=== PATIENT | male | born 1950 | race Caucasian/White ===

== ENCOUNTER 2016-06-16 09:34 | Emergency (ER) | payer MEDICARE, OTHER ==
[2016-06-16 10:14] LABS: HEMATOCRIT 39.1 % (42.0-52.0); HEMOGLOBIN 13.2 gm/dl (14.0-18.0); MEAN CELL VOLUME 97.8 fl (81-97); MEAN CORPUSCULAR HGB CONC 33.8 g/dl (32-36); MEAN PLATELET VOLUME 9.1 fl (7.4-10.4); PLATELET COUNT 243 K/uL (130-400); RED CELL DISTRIBUTION WIDTH 13.2 % (11.5-14.5); WHITE BLOOD COUNT W/O DIFF 12.6 K/uL (4.2-12.2)
[2016-06-16] MEDS: PROMETHAZINE HCL 25 MG/ML VIAL IVP ONE (10:19)
[2016-06-16] MEDS: HYDROMORPHONE HCL 1 MG/ML CPJ IVP ONE ×2 (10:20→13:59)
[2016-06-16] MEDS: 0.9 % SODIUM CHLORIDE 1,000 ML BAG IV ONE (10:21)
[2016-06-16 10:29] LABS: ANION GAP 10.9 (7-16); CARBON DIOXIDE 15.1 mmol/L (22-30); CREATININE 5.3 mg/dL (0.66-1.25)
--- NOTE | 2016-06-16 11:10 | Emergency Department Record ---
History of Present Illness - General Chief complaint: Flank Pain Stated complaint: THINK I HAVE A KIDNEY STONE Time Seen by Provider: 06/16/16 09:39 Source: Patient Mode of Arrival: Ambulatory Limitations: No limitations - History of Present Illness Initial comments: pt has a hx of r nephrectomy due to cancer and hx of kidney stones. pt has had l flank pain since yesterday and has been unable to urinate since yesterday at 3pm. pain was severe during night Onset/Timin -: Days(s) Location: Left flank Radiation: L flank Severity: Moderate Severity scale (1-10): 6 Quality: Aching Consistency: Constant Improves with: None Reports: Nausea/vomiting, Urinary retention - Related Data Home Medications Medication Instructions Recorded Confirmed Last Taken Albuterol Sulfate [Proair Hfa] 1 - 2 puff IH .EVERY 4-6 HOURS PRN 10/23/1406/16 1 Day Ago Fluticasone/Salmeterol [Advair 1 puff IH DAILY 10/23/14 06/16/16 1 Day Ago 250-50 Diskus] Hydrocodone/Acetaminophen [Darling 1 tab PO Q6H PRN 10/23/14 06/16/16 1 Day Ago 10-325 Tablet] Allergies Allergy/AdvReac Type Severity Reaction Status Date / Time No Known Drug Allergies Allergy Verified 06/16/16 09:47 Travel Screening - Travel/Exposure Within Last 30 Days Have you traveled within the last 30 days?: No - Travel/Exposure Within Last Year Have you traveled outside the [place] in the last year?: No - Additonal Travel Details Have you been exposed to anyone with a communicable illness?: No - Travel Symptoms Symptom Screening: None Review of Systems Reviewed: No additional complaints except as noted below Constitutional: Reports: As per HPI. Denies: Chills, Fever, Malaise, Night sweats, Weakness, Weight change Eyes: Reports: As per HPI. Denies: Eye discharge, Eye pain, Photophobia, Vision change ENT: Reports: As per HPI. Denies: Congestion, Dental pain, Ear pain, Epistaxis , Hearing loss, Throat pain Respiratory: Reports: As per HPI. Denies: Cough, Dyspnea, Hemoptysis, Stridor, Wheezes Cardiovascular: Reports: As per HPI. Denies: Arrhythmia, Chest pain, Dyspnea on exertion, Edema, Murmurs, Orthopnea, Palpitations, Paroxysmal nocturnal dyspnea, Rheumatic Fever, Syncope Endocrine: Reports: As per HPI. Denies: Fatigue, Heat or cold intolerance, Polydipsia, Polyuria Gastrointestinal: Reports: As per HPI. Denies: Abdominal pain, Constipation, Diarrhea, Hematemesis, Hematochezia, Melena, Nausea, Vomiting Genitourinary: Reports: As per HPI. Denies: Dysuria, Frequency, Hematuria, Incontinence, Retention, Testicular pain, Testicular mass, Urgency Musculoskeletal: Reports: As per HPI. Denies: Arthralgia, Back pain, Gout, Joint swelling, Myalgia, Neck pain Skin: Reports: As per HPI. Denies: Bruising, Change in color, Change in hair/ nails, Lesions, Pruritus, Rash Neurological: Reports: As per HPI. Denies: Abnormal gait, Confusion, Headache, Numbness, Paresthesias, Seizure, Tingling, Tremors, Vertigo, Weakness Psychiatric: Reports: As per HPI. Denies: Anxiety, Auditory hallucinations, Depression, Homicidal thoughts, Suicidal thoughts, Visual hallucinations Hematological/Lymphatic: Reports: As per HPI. Denies: Anemia, Blood Clots, Easy bleeding, Easy bruising, Swollen glands Past Medical History - SOCIAL HISTORY Smoking Status: Current every day smoker Alcohol Use: Rare Drug Use: None - RESPIRATORY Hx Respiratory Disorders: Yes Hx Sleep Apnea: Yes - CARDIOVASCULAR Hx Cardio Disorders: Yes Comment:: extra ventricular heart activity - NEURO Hx Neuro Disorders: Yes Hx Headaches: Yes - GI Hx GI Disorders: Yes Hx Reflux: Yes - Hx Genitourinary Disorders: Yes Hx Kidney Stones: Yes - ENDOCRINE Hx Endocrine Disorders: Yes Hx Thyroid Disease: Yes - MUSCULOSKELETAL Hx Musculoskeletal Disorders: Yes Hx Back Injury: Yes - PSYCH Hx Psych Problems: Yes Hx Anxiety: Yes Hx Depression: Yes - HEMATOLOGY/ONCOLOGY Hx Hematology/Oncology Disorders: Yes 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 negative: External canal tenderness Nasal Exam: Normal inspection. negative: Discharge, Sinus tenderness Mouth exam: Normal external inspection, Tongue normal Teeth exam: Normal inspection. negative: Dental caries Throat exam: Normal inspection. negative: Tonsillar erythema, Tonsillar exudate - Neck Neck exam: Normal inspection, Full ROM. negative: Tenderness - Respiratory Respiratory exam: Normal lung sounds bilaterally. negative: Respiratory distress - Cardiovascular Cardiovascular Exam: Regular rate, Normal rhythm, Normal heart sounds - GI/Abdominal GI/Abdominal exam: Soft, Normal bowel sounds, Tenderness (l flank) - Rectal Rectal exam: Deferred - exam: Deferred - Extremities Extremities exam: Normal inspection, Full ROM, Normal capillary refill. negative: Tenderness - Back Back exam: Reports: Normal inspection, Full ROM. Denies: Muscle spasm, Rash noted, Tenderness - Neurological Neurological exam: Alert, CN II-XII intact, Normal gait, Oriented X3 - Psychiatric Psychiatric exam: Normal affect, Normal mood - Skin Skin exam: Dry, Intact, Normal color, Warm Course Vital Signs 06/16/16 09:41 Temperature 98.7 F Pulse Rate 89 Respiratory 16 Rate Blood Pressure 127/71 Pulse Ox 99 Medical Decision Making - Management Options MDM Management: Additional Work-up Planned (e.g. ADM/Transfer/OP Study) - Data Complexity MDM Data: Labs Ordered and/or Reviewed, X-Ray Ordered and/or Reviewed - Lab Data Result diagrams: 06/16/16 10:05 06/16/16 10:05 Lab Results 06/16/16 06/16/16 Range/Units 10:05 10:05 WBC 12.6 H (4.2-12.2) K/uL RBC 4.00 L (4.40-5.70) M/uL Hgb 13.2 L (14.0-18.0) gm/dl Hct 39.1 L (42.0-52.0) % MCV 97.8 H (81-97) fl MCH 33.0 (27-33) pg MCHC 33.8 (32-36) g/dl RDW 13.2 (11.5-14.5) % Plt Count 243 (130-400) K/uL MPV 9.1 (7.4-10.4) fl Neutrophils % 71.0 (47-80) % Lymphocytes % 18.0 (16-45) % Monocytes % 11.0 H (0-9) % Eosinophils % Not Reportable Basophils % Not Reportable Sodium 134 L (136-145) mmol/L Potassium 5.0 (3.5-5.1) mmol/L Chloride 108 H (98-107) mmol/L Carbon Dioxide 15.1 L (22-30) mmol/L Anion Gap 10.9 (7-16) BUN 37 H (9-20) mg/dL Creatinine 5.3 H (0.66-1.25) mg/dL Estimated GFR 12 ml/min Random Glucose 91 (70-110) mg/dL Calcium 8.0 L (8.5-10.1) mg/dL - Radiology Data Radiology results: Report reviewed, Image reviewed Disposition Disposition: Transfer Clinical Impression: Acute renal failure (ARF) Qualifiers: Acute renal failure type: unspecified Qualified Code(s): N17.9 - Acute kidney failure, unspecified Hydronephrosis Qualifiers: Hydronephrosis type: with ureteral calculous obstruction Qualified Code(s): N13.2 - Hydronephrosis with renal and ureteral calculous obstruction Disposition: Acute Care Hospital Transfer Transfer To: [facility] Reason For Transfer: acute renal faiure with obstructing stones Accepting Physician: dr garcia Time Discussed w/Accepting Physician: 13:09 Forms: Patient Portal Access
--- NOTE | 2016-06-19 08:32 | CT SCAN REPORT ---
EXAM: CT SCAN OF THE ABDOMEN AND PELVIS WITHOUT CONTRAST HISTORY: LEFT FLANK PAIN AND SIDE PAIN. PREVIOUS RIGHT NEPHRECTOMY. TECHNIQUE: Standard CT imaging of the abdomen and pelvis was performed in the axial plane without contrast. Additional coronal and sagittal reformatted images were also performed. Comparison: 05/26/15. FINDINGS: There is mild atelectasis or scarring at the lung bases. The lung bases are otherwise clear. The liver is normal. The gallbladder is surgically absent. The biliary tree, pancreas, spleen, and adrenal glands are normal. There are multiple stones within the left proximal ureter. The largest measures 8 x 6 mm. There is moderate left hydronephrosis with associated perinephric fat stranding. Nonobstructing stones are also present within the left kidney. The largest is located at the inferior pole and measures 10 x 8 mm. The distal left ureter and urinary bladder appear normal. The right kidney is surgically absent. The aorta is normal in caliber. There is no retroperitoneal lymphadenopathy. The bowel and mesentery appear within normal limits. There are no focal inflammatory changes. There is no pneumoperitoneum or ascites. Surgical clips are present within the pericecal region. The prostate gland is nonenlarged. There are no acute osseous abnormalities. Degenerative changes are present within the spine. IMPRESSION: 1. THERE ARE MULTIPLE STONES WITHIN THE PROXIMAL LEFT URETER, THE LARGEST OF WHICH MEASURES 8 X 6 MM. THERE IS MODERATE ASSOCIATED LEFT HYDRONEPHROSIS. 2. NONOBSTRUCTING LEFT INTRARENAL CALCULI. 3. THERE ARE NO OTHER ACUTE FINDINGS. 4. POST SURGICAL CHANGES ABOVE. JOB NUMBER: [id number] [facility]
== END 2016-06-16 14:08 | disposition short-term general hospital (02) ==
LOC: ER 09:34
DX: N17.9 Acute kidney failure, unspecified (principal); N13.2 Hydronephrosis with renal and ureteral calculous obstruction; R11.2 Nausea with vomiting, unspecified; R33.9 Retention of urine, unspecified; Z87.442 Personal history of urinary calculi
CPT/HCPCS: 99285 ×2; 96376; 96374; 96375; 96361; 80048; 85027; 74176; J1170; J2550; J7030

== ENCOUNTER 2016-07-16 09:38 | Day surgery (SDC) | payer MEDICARE, OTHER ==
[2016-07-16] MEDS ORDERED: TETRACAINE HCL 0.5% 15 ML OPTH BTL OPTH ONE (13:48)
[2016-07-16] MEDS ORDERED: TETRACAINE HCL 0.5% OPTH 2ML SOLU OPTH ONE (13:48)
[2016-07-16] MEDS ORDERED: TOBRAMYCIN 0.3% OPTH DROP 5 ML BTL OPTH ONE (13:48)
[2016-07-16] MEDS ORDERED: PREDNISOLONE ACETATE 1% OPTH 10ML BOTTLE OPTH ONE (13:48)
[2016-07-16] MEDS ORDERED: DICLOFENAC SODIUM 2.5 ML DROPS OPTH ONE (13:48)
[2016-07-16] MEDS ORDERED: NEOMYCIN/POLY./DEXAM OPTH OINT OPTH ONE (13:48)
[2016-07-16] MEDS ORDERED: TROPICAMIDE 1% 15ML BTL OP ONE (13:48)
[2016-07-16] MEDS ORDERED: LIDOCAINE 1% MPF 100MG/10ML AMPULE IV ONE (13:48)
[2016-07-16] MEDS ORDERED: LIDOCAINE 2% MDV (20MG/ML) 20ML VIAL IV ONE (13:48)
[2016-07-16] MEDS ORDERED: PHENYLEPHRINE HCL 2.5% OPTH 2ML BTL OP ONE (13:48)
[2016-07-16] MEDS ORDERED: EPINEPHRINE 1 MG/ML AMPUL SQ ONE (13:48)
--- NOTE | 2016-07-16 14:47 | OP NOTE CHAMES ---
DATE OF PROCEDURE: 07/16/16 PREOPERATIVE DIAGNOSIS: Nuclear sclerotic cataract, right eye. POSTOPERATIVE DIAGNOSIS: Nuclear sclerotic cataract, right eye. OPERATION: Phacoemulsification of cataractous lens with implantation of intraocular lens. LENS IMPLANT USED: Valverde Model PCB00 + 19.5 diopters. COMPLICATIONS: None. PROCEDURE IN DETAIL: Following a retrobulbar and facial block, the patient was prepped and draped in the usual fashion for eye surgery. A lid speculum was placed in the right eye after which a 2.4 mm tunnel wound was placed at the temporal limbus and dissected into clear cornea. A paracentesis was placed at 2 oclock hours to the left and right of the initial incision and the chamber deepened with Viscoelastic. The keratome was then used to enter the anterior chamber after which the continuous circular capsulorrhexis was accomplished without difficulty using a bent needle and a Utrata forceps. Hydrodissection and hydrodelineation of the lens was performed after which the nucleus of the lens was removed using the Phaco handpiece in the [id number] technique. The residual cortical material was irrigated and aspirated from the eye after which the bag and chamber were re-examined. The bag was re-inflated with Viscoelastic and the intraocular lens injected into the capsular bag where it centered well. The Viscoelastic was then copiously irrigated and aspirated from the eye after which the temporal tunnel wound and paracentesis were hydrated and the wounds were examined. They were noted to be watertight. The lid speculum was removed from the eye and the eye patched and shielded. The patient was transferred to the recovery room in satisfactory condition and given an appointment to be reexamined in the clinic later today or as directed by Dr. Zelaya. Carlos Zelaya M.D. Date & Time JOB NUMBER: [id number] MTDD
== END 2016-07-16 12:40 | disposition home or self-care (01) ==
LOC: SUR 09:38
PROVIDERS: ATTEND Ophthalmology
DX: H25.11 Age-related nuclear cataract, right eye (principal); J45.909 Unspecified asthma, uncomplicated
CPT/HCPCS: J0171; J3490

== ENCOUNTER 2016-07-18 09:22 | Emergency (ER) | payer MEDICARE, OTHER ==
--- NOTE | 2016-07-18 09:37 | Emergency Department Record ---
History of Present Illness - General Chief complaint: Rectal bleeding Stated complaint: RECTAL BLEEDING Time Seen by Provider: 07/18/16 09:36 Source: Patient Mode of Arrival: Wheelchair Limitations: No limitations - History of Present Illness Initial comments: The patient is here due to a 3 day hx of dark stools. He was having some epigastric AP but no vomiting. The stools are dark black and brown which have not been normal for him. Now he is weak and dizzy with standing. The patient only has one kidney and a month ago did have ureter stones on the L with renal failure. On that visit to the ER he was transferred to [facility] and had a ureter stent placed. He denies any new pain medicines. MD complaint: Melena Onset/Timin -: Days(s) Radiation: None Consistency: Intermittent Improves with: None Worsens with: None Context: History of GI bleed Associated Symptoms: Abdominal pain, Diarrhea, Weakness Treatments Prior to Arrival: None - Related Data Home Medications Medication Instructions Recorded Confirmed Last Taken Albuterol Sulfate [Proair Hfa] 1 - 2 puff IH .EVERY 4-6 HOURS PRN 10/23/1407/18 1 Day Ago Fluticasone/Salmeterol [Advair 1 puff IH DAILY 10/23/14 07/18/16 1 Day Ago 250-50 Diskus] Hydrocodone/Acetaminophen [Natchez 1 tab PO Q6H PRN 10/23/14 07/18/16 1 Day Ago 10-325 Tablet] Allergies Allergy/AdvReac Type Severity Reaction Status Date / Time No Known Drug Allergies Allergy Verified 07/18/16 09:33 Travel Screening - Travel/Exposure Within Last 30 Days Have you traveled within the last 30 days?: No Review of Systems Constitutional: Reports: Malaise. Denies: Chills, Fever Eyes: Denies: Eye discharge ENT: Denies: Congestion Respiratory: Denies: Cough Cardiovascular: Denies: Arrhythmia, Chest pain Endocrine: Reports: Fatigue Gastrointestinal: Reports: Melena. Denies: Diarrhea Genitourinary: Denies: Dysuria, Frequency Musculoskeletal: Denies: Back pain Skin: Denies: Bruising Past Medical History - SOCIAL HISTORY Smoking Status: Current every day smoker Alcohol Use: None Drug Use: None - RESPIRATORY Hx Respiratory Disorders: Yes Hx Asthma: Yes Hx Sleep Apnea: Yes - CARDIOVASCULAR Hx Cardio Disorders: Yes Hx Irregular Heartbeat: Yes (extra beat) Hx Palpitations: Yes Comment:: extra ventricular heart activity - NEURO Hx Neuro Disorders: Yes Hx Headaches: Yes - GI Hx GI Disorders: Yes Hx Nausea/Vomiting: Yes (nausea from kidney stones) - Hx Genitourinary Disorders: Yes Hx Kidney Stones: Yes Hx Renal Disease: Yes (right kidney removed d/t cancer) - ENDOCRINE Hx Endocrine Disorders: Yes Hx Thyroid Disease: Yes - MUSCULOSKELETAL Hx Musculoskeletal Disorders: Yes Hx Back Injury: Yes - PSYCH Hx Psych Problems: Yes Hx Anxiety: Yes Hx Depression: Yes - HEMATOLOGY/ONCOLOGY Hx Hematology/Oncology Disorders: Yes 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 negative: Tonsillar erythema, Tonsillar exudate - Neck Neck exam: Normal inspection, Full ROM. negative: Tenderness - Respiratory Respiratory exam: Normal lung sounds bilaterally. negative: Respiratory distress - Cardiovascular Cardiovascular Exam: Regular rate, Normal rhythm, Normal heart sounds - GI/Abdominal GI/Abdominal exam: Soft, Normal bowel sounds. negative: Guarding, Rigid, Tenderness - Rectal Rectal exam: Black stool, Heme (+) stool - Extremities Extremities exam: Normal inspection, Full ROM, Normal capillary refill. negative: Tenderness - Neurological Neurological exam: Alert, Oriented X3. negative: Motor sensory deficit - Skin Skin exam: Pallor Course Vital Signs 07/18/16 09:33 Temperature 97.7 F Pulse Rate [ 122 H Pulse Ox Probe] Respiratory 24 Rate Blood Pressure 85/58 [Left Arm] Pulse Ox 100 - Reevaluation(s) Reevaluation #1: The patient is feeling better at this time. His BP is now improved and the systolic is in the 90's. He denies any CP or SOB. I did discuss the need for transfer to a larger hospital with him and he would like to go to [facility]. 07/18/16 10:53 Reevaluation #2: The patient is doing very well at this time. His BP is improving and he is resting comfortably. I did discuss the case with Dr. Hernandez at [facility] and she accepts the patient to the hospital in transfer. 07/18/16 11:19 Reevaluation #3: The patient is doing very well at this time. His BP is improved at 112/70 and he is resting comfortably. We are still waiting on a bed at [facility]. 07/18/16 11:43 Reevaluation #4: The patient is doing very well at this time. His 1st unit of blood is almost in. I did discuss the IV access problem we are having with him. We were able to get 2 22 gauge IV's in him and have tried multiple times for a larger IV. Due to his dehydration we seem to be having trouble. I did discuss putting a central line in but the patient is refusing. He presently is hemodynamically stable and has had no melena for many hours so I do feel it is OK for him to refuse. 07/18/16 12:52 Medical Decision Making - Data Complexity MDM Data: Labs Ordered and/or Reviewed, EKG Ordered and/or Reviewed - Lab Data Result diagrams: 07/18/16 09:55 07/18/16 09:55 - EKG Data -: EKG Interpreted by Me EKG: No Acute Changes, Normal EKG Disposition Forms: Patient Portal Access
[2016-07-18 10:02] LABS: HEMATOCRIT 27.8 % (42.0-52.0); HEMOGLOBIN 8.8 gm/dl (14.0-18.0); MEAN CELL VOLUME 102.2 fl (81-97); MEAN CORPUSCULAR HGB CONC 31.7 g/dl (32-36); MEAN PLATELET VOLUME 10.2 fl (7.4-10.4); PLATELET COUNT 225 K/uL (130-400); RED BLOOD COUNT 2.72 M/uL (4.40-5.70); RED CELL DISTRIBUTION WIDTH 13.1 % (11.5-14.5); WHITE BLOOD COUNT W/O DIFF 11.7 K/uL (4.2-12.2)
[2016-07-18 10:04] LABS: MEAN CORPUSCULAR HEMOGLOBIN 32.3 pg (27-33)
[2016-07-18] MEDS: 0.9 % SODIUM CHLORIDE 1,000 ML BAG IV ONE ×2 (10:05)
[2016-07-18 10:12] LABS: HYPOCHROMIA 1+; PLATELET ESTIMATE NORMAL (NORMAL)
[2016-07-18 10:16] LABS: ALBUMIN 3.4 gm/dL (3.5-5.0); ANION GAP 16.3 (7-16); BILIRUBIN,TOTAL 0.19 mg/dL (0.2-1.3); CARBON DIOXIDE 12.7 mmol/L (22-30); CREATININE 2.5 mg/dL (0.66-1.25); TOTAL PROTEIN 5.9 gm/dL (6.3-8.2)
[2016-07-18 10:18] LABS: INR 0.96; PROTHROMBIN TIME (PATIENT) 10.9 SECONDS (9.5-12.1)
[2016-07-18 10:42] LABS: ABO GROUP O; ANTIBODY SCREEN NEGATIVE (NEGATIVE); RH TYPE POSITIVE
[2016-07-18 11:01] LABS: IMMED. SPIN CROSSMATCH COMPATIBLE
[2016-07-18] MEDS: HYDROMORPHONE HCL 1 MG/ML CPJ IVP ONE (11:55)
[2016-07-18] MEDS: ONDANSETRON HCL IV 4 MG/2 ML VIAL IVP ONE (11:55)
--- NOTE | 2016-07-23 07:45 | Emergency Department Record ---
History of Present Illness - General Chief complaint: Rectal bleeding Stated complaint: RECTAL BLEEDING Time Seen by Provider: 07/18/16 09:36 Source: Patient Mode of Arrival: Wheelchair Limitations: No limitations - History of Present Illness MD complaint: Melena Onset/Timin -: Days(s) Radiation: None Consistency: Intermittent Improves with: None Worsens with: None Context: History of GI bleed Associated Symptoms: Abdominal pain, Diarrhea, Weakness Treatments Prior to Arrival: None - Related Data Home Medications Medication Instructions Recorded Confirmed Last Taken Albuterol Sulfate [Proair Hfa] 1 - 2 puff IH .EVERY 4-6 HOURS PRN 10/23/1407/18 1 Day Ago Fluticasone/Salmeterol [Advair 1 puff IH DAILY 10/23/14 07/18/16 1 Day Ago 250-50 Diskus] Hydrocodone/Acetaminophen [Hines 1 tab PO Q6H PRN 10/23/14 07/18/16 1 Day Ago 10-325 Tablet] Allergies Allergy/AdvReac Type Severity Reaction Status Date / Time No Known Drug Allergies Allergy Verified 07/18/16 09:33 Travel Screening - Travel/Exposure Within Last 30 Days Have you traveled within the last 30 days?: No Review of Systems Constitutional: Reports: Malaise. Denies: Chills, Fever Eyes: Denies: Eye discharge ENT: Denies: Congestion Respiratory: Denies: Cough Cardiovascular: Denies: Arrhythmia, Chest pain Endocrine: Reports: Fatigue Gastrointestinal: Reports: Melena. Denies: Diarrhea Genitourinary: Denies: Dysuria, Frequency Musculoskeletal: Denies: Back pain Skin: Denies: Bruising Past Medical History - SOCIAL HISTORY Smoking Status: Current every day smoker Alcohol Use: None Drug Use: None - RESPIRATORY Hx Respiratory Disorders: Yes Hx Asthma: Yes Hx Sleep Apnea: Yes - CARDIOVASCULAR Hx Cardio Disorders: Yes Hx Irregular Heartbeat: Yes (extra beat) Hx Palpitations: Yes Comment:: extra ventricular heart activity - NEURO Hx Neuro Disorders: Yes Hx Headaches: Yes - GI Hx GI Disorders: Yes Hx Nausea/Vomiting: Yes (nausea from kidney stones) - Hx Genitourinary Disorders: Yes Hx Kidney Stones: Yes Hx Renal Disease: Yes (right kidney removed d/t cancer) - ENDOCRINE Hx Endocrine Disorders: Yes Hx Thyroid Disease: Yes - MUSCULOSKELETAL Hx Musculoskeletal Disorders: Yes Hx Back Injury: Yes - PSYCH Hx Psych Problems: Yes Hx Anxiety: Yes Hx Depression: Yes - HEMATOLOGY/ONCOLOGY Hx Hematology/Oncology Disorders: Yes 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) Family Medical History Any Significant Family History?: Yes Hx Cancer: Grandparents Hx Heart Disease: Mother Hx Stroke: Mother Physical Exam - General Limitations: No limitations Course Vital Signs 07/18/16 07/18/16 07/18/16 09:33 10:03 10:41 Temperature 97.7 F Pulse Rate [ 122 H 97 H 80 Pulse Ox Probe] Respiratory 24 24 22 Rate Blood Pressure 85/58 82/52 91/55 [Left Arm] Pulse Ox 100 99 100 07/18/16 13:21 Temperature 98.4 F Pulse Rate [ 93 H Pulse Ox Probe] Respiratory 14 Rate Blood Pressure [Left Arm] Pulse Ox 99 Medical Decision Making - Lab Data Result diagrams: 07/18/16 09:55 07/18/16 09:55 Lab Results 07/18/16 07/18/16 07/18/16 Range/Units 09:55 09:55 09:56 WBC 11.7 (4.2-12.2) K/uL RBC 2.72 L (4.40-5.70) M/uL Hgb 8.8 L (14.0-18.0) gm/dl Hct 27.8 L (42.0-52.0) % MCV 102.2 H (81-97) fl MCH 32.3 (27-33) pg MCHC 31.7 L (32-36) g/dl RDW 13.1 (11.5-14.5) % Plt Count 225 (130-400) K/uL MPV 10.2 (7.4-10.4) fl Neutrophils % 87.0 H (47-80) % Lymphocytes % 10.0 L (16-45) % Monocytes % 3.0 (0-9) % Eosinophils % Not Reportable Basophils % Not Reportable Platelet Estimate Normal (NORMAL) Hypochromasia 1+ PT (9.5-12.1) SECONDS INR PTT (24.5-39.1) SECONDS Sodium 141 (136-145) mmol/L Potassium 5.4 H (3.5-5.1) mmol/L Chloride 112 H (98-107) mmol/L Carbon Dioxide 12.7 L (22-30) mmol/L Anion Gap 16.3 H (7-16) BUN 43 H (9-20) mg/dL Creatinine 2.5 H (0.66-1.25) mg/dL Estimated GFR 28 ml/min Random Glucose 131 H (70-110) mg/dL Calcium 8.4 L (8.5-10.1) mg/dL Total Bilirubin 0.19 L (0.2-1.3) mg/dL Direct Bilirubin 0.0 (0-0.3) mg/dL AST 20 (17-59) U/L ALT 39 (21-72) U/L Alkaline Phosphatase 85 (38-126) U/L Total Protein 5.9 L (6.3-8.2) gm/dL Albumin 3.4 L (3.5-5.0) gm/dL Lipase 150 (23-300) U/L ABO Group O Rh Factor Positive Antibody Screen Negative (NEGATIVE) 07/18/16 Range/Units 10:08 WBC (4.2-12.2) K/uL RBC (4.40-5.70) M/uL Hgb (14.0-18.0) gm/dl Hct (42.0-52.0) % MCV (81-97) fl MCH (27-33) pg MCHC (32-36) g/dl RDW (11.5-14.5) % Plt Count (130-400) K/uL MPV (7.4-10.4) fl Neutrophils % (47-80) % Lymphocytes % (16-45) % Monocytes % (0-9) % Eosinophils % Basophils % Platelet Estimate (NORMAL) Hypochromasia PT 10.9 (9.5-12.1) SECONDS INR 0.96 PTT 18.00 L (24.5-39.1) SECONDS Sodium (136-145) mmol/L Potassium (3.5-5.1) mmol/L Chloride (98-107) mmol/L Carbon Dioxide (22-30) mmol/L Anion Gap (7-16) BUN (9-20) mg/dL Creatinine (0.66-1.25) mg/dL Estimated GFR ml/min Random Glucose (70-110) mg/dL Calcium (8.5-10.1) mg/dL Total Bilirubin (0.2-1.3) mg/dL Direct Bilirubin (0-0.3) mg/dL AST (17-59) U/L ALT (21-72) U/L Alkaline Phosphatase (38-126) U/L Total Protein (6.3-8.2) gm/dL Albumin (3.5-5.0) gm/dL Lipase (23-300) U/L ABO Group Rh Factor Antibody Screen (NEGATIVE) Disposition Disposition: Transfer Clinical Impression: GI bleed Qualifiers: GI bleed type/associated pathology: melena Qualified Code(s): K92.1 - Melena Disposition: Acute Care Hospital Transfer Transfer To: [facility] Reason For Transfer: GI Bleed Accepting Physician: Mary Time Discussed w/Accepting Physician: 07:44 Condition: (2) Stable Forms: Patient Portal Access Time of Disposition: 07:44
== END 2016-07-18 13:59 | disposition short-term general hospital (02) ==
LOC: ER 09:22
DX: K92.1 Melena (principal); R10.13 Epigastric pain; E86.0 Dehydration; R06.02 Shortness of breath; R53.1 Weakness; N19 Unspecified kidney failure; Z85.528 Personal history of other malignant neoplasm of kidney; R19.7 Diarrhea, unspecified; Z87.442 Personal history of urinary calculi; F17.210 Nicotine dependence, cigarettes, uncomplicated
CPT/HCPCS: 99285 ×2; 36430; 96374; 96375; 96361; 83690; 85730; 85610; 80076; 80048; 85027; 86900; 86901; 86850; 93005; 93010; P9016; J2405; J1170; J7030

== ENCOUNTER 2017-01-14 09:32 | Day surgery (SDC) | payer MEDICARE, OTHER ==
[~2017-01-14 09:32] MED LIST: CIPROFLOXACIN HCL 0.0015 GM, PHENYLEPHRINE HCL 0.0125 GM, KETOROLAC TROMETHAMINE 0.0006... MC ONE
[2017-01-14] MEDS ORDERED: FENTANYL PF 100MCG/2ML VIAL IV ONE (14:40)
[2017-01-14] MEDS ORDERED: LIDOCAINE 2% MDV (20MG/ML) 20ML VIAL IV ONE ×2 (14:40→14:56)
[2017-01-14] MEDS ORDERED: MEPERIDINE 50 MG/1 ML VIAL IVP ONE (14:40)
[2017-01-14] MEDS ORDERED: PROPOFOL 10 MG/ML VIAL IV ONE (14:40)
[2017-01-14] MEDS ORDERED: TETRACAINE HCL 0.5% 15 ML OPTH BTL OPTH ONE (14:56)
[2017-01-14] MEDS ORDERED: LIDOCAINE 1% MPF 100MG/10ML STERILE-PAK AMPULE IV ONE (14:56)
[2017-01-14] MEDS ORDERED: NEOMYCIN/POLY./DEXAM OPTH OINT OPTH ONE (14:56)
[2017-01-14] MEDS ORDERED: EPINEPHRINE 1 MG/ML AMPUL SQ ONE (14:56)
[2017-01-14] MEDS ORDERED: TETRACAINE HCL 0.5% OPTH 2ML SOLU OPTH ONE (14:56)
--- NOTE | 2017-01-16 01:12 | Operative Note ---
DATE OF PROCEDURE: 01/14/17. PREOPERATIVE DIAGNOSIS: Nuclear sclerotic and cortical cataract, left eye. POSTOPERATIVE DIAGNOSIS: Nuclear sclerotic and cortical cataract, left eye. OPERATION: Phacoemulsification of cataractous lens with implantation of intraocular lens. LENS IMPLANT USED: Valverde Model PCB00 + 22.0 diopters. COMPLICATIONS: None. PROCEDURE IN DETAIL: Following a retrobulbar and facial block, the patient was prepped and draped in the usual fashion for eye surgery. A lid speculum was placed in the left eye after which a 2.4 mm tunnel wound was placed at the temporal limbus and dissected into clear cornea. A paracentesis was placed at 2 o'clock hours to the left and right of the initial incision and the chamber deepened with Viscoelastic. The keratome was then used to enter the anterior chamber after which the continuous circular capsulorrhexis was accomplished without difficulty using a bent needle and a Utrata forceps. Hydrodissection and hydrodelineation of the lens was performed after which the nucleus of the lens was removed using the Phaco handpiece in the [id number] technique. The residual cortical material was irrigated and aspirated from the eye after which the bag and chamber were re-examined. The bag was re-inflated with Viscoelastic and the intraocular lens injected into the capsular bag where it centered well. The Viscoelastic was then copiously irrigated and aspirated from the eye after which the temporal tunnel wound and paracentesis were hydrated and the wounds were examined. They were noted to be watertight. The lid speculum was removed from the eye and the eye patched and shielded. The patient was transferred to the recovery room in satisfactory condition and given an appointment to be reexamined in the clinic later today or as directed by Dr. Zelaya. JOB NUMBER: [id number] [facility]
== END 2017-01-14 12:35 | disposition home or self-care (01) ==
LOC: SUR 09:32
PROVIDERS: ATTEND Ophthalmology
DX: H25.12 Age-related nuclear cataract, left eye (principal); H25.012 Cortical age-related cataract, left eye; F17.210 Nicotine dependence, cigarettes, uncomplicated
CPT/HCPCS: 66984; 00142; J3010; J0171; J3490

== ENCOUNTER 2017-07-26 12:19 | Emergency (ER) | payer MEDICARE, OTHER ==
[2017-07-26] MEDS ORDERED: ONDANSETRON HCL IV 4 MG/2 ML VIAL IV ONE (12:34)
[2017-07-26] MEDS ORDERED: 0.9 % SODIUM CHLORIDE 1,000 ML BAG IV ONE (12:34)
[2017-07-26] MEDS ORDERED: MAGNESIUM HYDROXIDE/AL HYDROX 30 ML, LIDOCAINE VISC 2% 200 MG PO ONE ×2 (12:37)
--- NOTE | 2017-07-26 12:43 | Emergency Department Record ---
History of Present Illness - General Chief complaint: Flank Pain Stated complaint: LEFT FLANK PAIN Time Seen by Provider: 07/26/17 12:30 Source: Patient Mode of Arrival: Ambulatory Limitations: No limitations - History of Present Illness Initial comments: The patient is here due to L flank pain for a week off and on and also epigastric pain intermittently that radiates to her back. He denies any dysuria , hematuria, fever, chills, nausea, or vomiting. The patient states he has a hx of Kidney stones and feels he may another one. He also has a hx of PUD and has had gastric bypass surgery. There has been no dark or black stools or any CP, SOB, or sweating. The patient has had a R Nephrectomy also. MD Complaint: Other Onset/Timin -: Week(s) Location: Left flank Radiation: Back Severity: Moderate Severity scale (1-10): 7 Quality: Sharp Consistency: Constant Improves with: None Worsens with: None Reports: Denies other symptoms - Related Data Home Medications Medication Instructions Recorded Confirmed Last Taken Omeprazole 20 mg PO DAILY 07/26/17 07/26/17 Unknown Previous Rx's Medication Instructions Recorded Sucralfate [Carafate] 1 gm PO QID #28 tablet 07/26/17 Sucralfate [Carafate] 1 gm PO QID #28 tablet 07/26/17 Allergies Allergy/AdvReac Type Severity Reaction Status Date / Time No Known Drug Allergies Allergy Verified 07/26/17 12:28 Travel Screening - Travel/Exposure Within Last 30 Days Have you traveled within the last 30 days?: No Review of Systems Constitutional: Denies: Chills, Fever Eyes: Denies: Eye discharge Past Medical History - SOCIAL HISTORY Smoking Status: Current every day smoker Alcohol Use: Rare Drug Use: None - RESPIRATORY Hx Respiratory Disorders: Yes Hx Asthma: Yes Hx Sleep Apnea: Yes - CARDIOVASCULAR Hx Cardio Disorders: Yes Hx Irregular Heartbeat: Yes Hx Palpitations: Yes - NEURO Hx Neuro Disorders: Yes Hx Headaches: Yes - GI Hx GI Disorders: Yes Hx Nausea/Vomiting: Yes Comment:: ulcer - Hx Genitourinary Disorders: Yes Hx Kidney Stones: Yes Hx Renal Disease: Yes (right kidney removed d/t cancer) - ENDOCRINE Hx Endocrine Disorders: Yes Hx Thyroid Disease: Yes - MUSCULOSKELETAL Hx Musculoskeletal Disorders: Yes Hx Back Injury: Yes - PSYCH Hx Psych Problems: Yes Hx Anxiety: Yes Hx Depression: Yes - HEMATOLOGY/ONCOLOGY Hx Hematology/Oncology Disorders: Yes 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 negative: Tonsillar erythema, Tonsillar exudate - Neck Neck exam: Normal inspection, Full ROM. negative: Tenderness - Respiratory Respiratory exam: Normal lung sounds bilaterally. negative: Respiratory distress - Cardiovascular Cardiovascular Exam: Regular rate, Normal rhythm, Normal heart sounds - GI/Abdominal GI/Abdominal exam: Soft, Normal bowel sounds. negative: Tenderness - Extremities Extremities exam: Normal inspection, Full ROM, Normal capillary refill. negative: Tenderness - Neurological Neurological exam: Alert, Normal gait. negative: Abnormal gait, Motor sensory deficit Course Vital Signs 07/26/17 12:22 Temperature 98.1 F Pulse Rate 99 H Respiratory 20 Rate Blood Pressure 127/77 Pulse Ox 100 - Reevaluation(s) Reevaluation #1: On review of his old records he did have an EGD n 02/07/17 which did demonstrate 2 small duodenal ulcers and one large 3 cm duodenal ulcer but none were bleeding. 07/26/17 13:01 Reevaluation #2: The patient is doing very well at this time. He states his upper abdominal pain is much better. I did discuss the lab results and CT with the patient and the need for F/U. Due to his hx of UGI bleed I did recommend admitting the patient to the hospital for an EGD but he is refusing. He understands the risks of refusing and accepts the risks of developing a bleeding ulcer. He is to take Carafate and we will refer him to Dr. Murguia for further evaluation. 07/26/17 14:32 Medical Decision Making - Data Complexity MDM Data: Labs Ordered and/or Reviewed, X-Ray Ordered and/or Reviewed - Lab Data Result diagrams: 07/26/17 12:45 07/26/17 12:45 - Radiology Data Radiology results: Report reviewed (Head CT: 8x6 mm L kidney stone lower pole of the L kidney, nonobstruction. Possible mass L kidney. Rec: F/U.) Disposition Disposition: Discharge Clinical Impression: Abdominal pain Qualifiers: Abdominal location: epigastric Qualified Code(s): R10.13 - Epigastric pain Disposition: Home, Self-Care Condition: (2) Stable Instructions: Abdominal Pain (ED) Additional Instructions: Please take the Carafate as directed and only use Tylenol for pain. Please see Dr. Murguia in the Specialty clinic this week if possible. Also see your PCP for recheck to have the L kidney mass evaluated with MRI. Return to the ER for any worsening symptoms, pain, bleeding or dizziness. Prescriptions: Sucralfate [Carafate] 1 gm PO QID #28 tablet Sucralfate [Carafate] 1 gm PO QID #28 tablet Referrals: [facility] [Provider Group] Forms: Patient Portal Access Time of Disposition: 14:45 Quality - Quality Measures Quality Measures: N/A - Blood Pressure Screening View Details: Yes Does Patient Have Any of the Following: No Blood Pressure Classification: Normal BP Reading Systolic Measurement: 107 Diastolic Measurement: 69 Screening for High Blood Pressure: < Normal BP, F/U Not Required > [G8783]
[2017-07-26 12:57] LABS: BASO % 0.3 % (0-6); EOS % 4.2 % (0-6); GRAN % 58.3 % (47-80); HEMATOCRIT 40.9 % (42.0-52.0); HEMOGLOBIN 13.6 gm/dl (14.0-18.0); LYMPH % 25.4 % (16-45); MEAN CELL VOLUME 101.2 fl (81-97); MEAN CORPUSCULAR HGB CONC 33.3 g/dl (32-36); MEAN PLATELET VOLUME 9.5 fl (7.4-10.4); MONO % 11.8 % (0-9); PLATELET COUNT 267 K/uL (130-400); RED BLOOD COUNT 4.04 M/uL (4.40-5.70); RED CELL DISTRIBUTION WIDTH 13.6 % (11.5-14.5); WHITE BLOOD COUNT W/O DIFF 8.7 K/uL (4.2-12.2)
[2017-07-26 12:59] LABS: MEAN CORPUSCULAR HEMOGLOBIN 33.6 pg (27-33)
[2017-07-26 13:15] LABS: BLOOD UREA NITROGEN 18 mg/dL (8-23); CREATININE 2.2 mg/dL (0.7-1.2); EST GLOMERULAR FILTRATION RATE 32 mL/min; TOTAL PROTEIN 7.3 g/dL (6.6-8.7)
[2017-07-26 13:17] LABS: GLUCOSE,RANDOM 95 mg/dL (74-109)
[2017-07-26 13:20] LABS: ALBUMIN 4.3 g/dL (4.0-5.0); ALKALINE PHOSPHATASE 123 U/L (40-129); ALT/SGPT 30 U/L (<41); AST/SGOT 20 U/L (10.0-50.0); LIPASE 35 U/L (13-60)
[2017-07-26 13:22] LABS: BILIRUBIN,DIRECT < 0.2 mg/dL (0-0.3)
[2017-07-26 13:28] LABS: URINE APPEARANCE CLEAR; URINE BILIRUBIN NEGATIVE (NEGATIVE); URINE BLOOD TRACE-L (NEGATIVE); URINE COLOR YELLOW; URINE GLUCOSE (UA) NEGATIVE (NEGATIVE); URINE KETONE NEGATIVE (NEGATIVE); URINE LEUKOCYTE ESTERASE NEGATIVE (NEGATIVE); URINE NITRITE NEGATIVE (NEGATIVE); URINE UROBILINOGEN 0.2 E.U./dL (0.20 - 1.00)
[2017-07-26 13:38] LABS: URINE BACTERIA NONE SEEN; URINE EPITHELIAL CELLS NONE SEEN (FEW); URINE RBC NONE SEEN (NONE SEEN); URINE WBC NONE SEEN (0-2/hpf)
[2017-07-26] MEDS ORDERED: SUCRALFATE 1 G/10 ML UD PO ONE (13:48)
--- NOTE | 2017-07-27 08:03 | CT SCAN REPORT ---
EXAM: CT OF THE ABDOMEN AND PELVIS WITHOUT CONTRAST HISTORY: LEFT FLANK PAIN FOR ONE WEEK. GASTRIC ULCER DIAGNOSED TWO WEEKS AGO. PRIOR RIGHT NEPHRECTOMY FOR RENAL CELL CARCINOMA. TECHNIQUE: Thin collimation helical CT examination of the abdomen and pelvis was performed without oral or intravenous contrast administration. Lack of oral and IV contrast utilization limits evaluation of the bowel and solid viscera respectively. Comparison: CT of the abdomen and pelvis without contrast dated 06/16/16. FINDINGS: There is minor linear scarring versus atelectasis within the lateral lung bases. There is minor compressive atelectasis in the posteromedial right lung base secondary to vertebral body end plate spurs. No pleural or pericardial effusion. The heart is not enlarged. There is mild elevation of the right hemidiaphragm, stable. No new focal abnormality is demonstrated within the liver, spleen, pancreas, nor adrenal glands. The right kidney is surgically absent as is the gallbladder. No definite recurrent mass within the right renal fossa. The right renal fossa appears filled by unopacified bowel loops. Surgical clips are again noted near the cecal tip. The left kidney is normal in size, position and is smoothly marginated. No left hydronephrosis. There is a 7.8 x 5.8 mm nonobstructing calculus in the lower pole of the left kidney. A previously demonstrated tiny calculus in the mid left kidney is no longer identified. No obstructive uropathy. No ureteral calculus. There is a mass arising exophytically from the lower pole of the left kidney measuring 2.2 x 2.4 cm. This has a density of 25 Hounsfield units which is slightly greater than simple fluid. There is a small contour deforming hypodense mass arising from the anterior upper pole of the left kidney measuring 11 mm, not significantly changed. This does not appear significantly changed in the interval. No other renal mass is seen. There is mild atherosclerosis without aneurysmal dilatation of the abdominal aorta. No new pelvic mass nor lymphadenopathy is seen. A couple small nodular hyperdensities are noted within the right seminal vesicle, unchanged. These are nonspecific. No new gross bowel dilatation nor definite wall thickening though evaluation is limited by lack of oral contrast utilization. Wall thickening of the proximal duodenum would be difficult to exclude. No new lytic or blastic bone lesion. There are degenerative changes scattered throughout the visualized spine severe at the L4-L5 level where there is partial fusion of these vertebra. IMPRESSION: 1. STATUS POST RIGHT NEPHRECTOMY, CHOLECYSTECTOMY, AND REDEMONSTRATION OF SURGICAL CLIPS ALONG THE CECAL TIP. 2. 7.8 X 5.8 MM NONOBSTRUCTING CALCULUS IN THE LOWER POLE OF THE LEFT KIDNEY. NO OBSTRUCTIVE UROPATHY. 3. MASS ARISING EXOPHYTICALLY FROM THE LOWER POLE OF THE LEFT KIDNEY SLIGHTLY LARGER IN THE INTERVAL. THIS MEASURES 2.4 CM IN MAXIMUM DIAMETER. IT DOES NOT MEET STRICT DENSITY CRITERIA FOR A SIMPLE CYST THOUGH PROTEINACEOUS CYST WOULD BE THE MOST LIKELY ETIOLOGY. IF CLINICALLY WARRANTED THIS COULD BE FURTHER EVALUATED WITH PRE AND POST CONTRAST ADMINISTRATION CT OR MRI EXAMINATION. STABLE 11 MM HYPODENSE LESION WITHIN THE UPPER POLE OF THE LEFT KIDNEY, NONSPECIFIC, BUT LIKELY A CYST. 4. MILD WALL THICKENING OF THE PROXIMAL DUODENUM CANNOT BE EXCLUDED. JOB NUMBER: [id number] [facility]TD[facility]
== END 2017-07-26 15:30 | disposition home or self-care (01) ==
LOC: ER 12:19
DX: R10.13 Epigastric pain (principal); Z79.899 Other long term (current) drug therapy; Z51.81 Encounter for therapeutic drug level monitoring; F17.210 Nicotine dependence, cigarettes, uncomplicated; Z98.84 Bariatric surgery status; Z87.442 Personal history of urinary calculi; Z85.53 Personal history of malignant neoplasm of renal pelvis
CPT/HCPCS: 99284 ×2; 96374; 83690; 85025; 80076; 80048; 80053; 81001; 83036; 84443; 80061; 74176; J2405; J7030

== ENCOUNTER 2018-06-08 13:36 | Emergency (ER) | payer MEDICARE, OTHER ==
[2018-06-08] MEDS ORDERED: 0.9 % SODIUM CHLORIDE 1000ML 1,000 ML IV PRN (13:58)
--- NOTE | 2018-06-08 14:00 | Emergency Department Record ---
History of Present Illness - General Chief complaint: Flank Pain Stated complaint: KIDNEY STONE, FLANK PAIN Time Seen by Provider: 06/08/18 13:51 Source: Patient Mode of Arrival: Ambulatory - History of Present Illness Initial comments: patient here for kidney stone pain left side and comes and goes for one week. primary Dr. Casas, [facility] right kidney removed for cancer 30 years ago, history of kidney stones and has had lithotripsy three times 15 years ago. PMH back pain with chronic norco use 10 mg three times a day. Last back surgery 2015 Going for back electric stimulator next month. through [facility] Onset/Timin -: Days(s) Location: Left flank Severity scale (1-10): 5 Quality: Aching, Sharp Consistency: Constant, Intermittent - Related Data Previous Rx's Medication Instructions Recorded Cyclobenzaprine HCl [Flexeril] 10 mg PO TID #20 tablet 06/08/18 Allergies Allergy/AdvReac Type Severity Reaction Status Date / Time No Known Drug Allergies Allergy Verified 06/08/18 13:48 Travel Screening - Travel/Exposure Within Last 30 Days Have you traveled within the last 30 days?: No - Travel/Exposure Within Last Year Have you traveled outside the [place] in the last year?: No - Additonal Travel Details Have you been exposed to anyone with a communicable illness?: No - Travel Symptoms Symptom Screening: None Review of Systems Reviewed: No additional complaints except as noted below Constitutional: Reports: As per HPI. Denies: Chills, Fever, Malaise, Night sweats, Weakness, Weight change Eyes: Reports: As per HPI. Denies: Eye discharge, Eye pain, Photophobia, Vision change ENT: Reports: As per HPI. Denies: Congestion, Dental pain, Ear pain, Epistaxis , Hearing loss, Throat pain Respiratory: Reports: As per HPI. Denies: Cough, Dyspnea, Hemoptysis, Stridor, Wheezes Cardiovascular: Reports: As per HPI. Denies: Arrhythmia, Chest pain, Dyspnea on exertion, Edema, Murmurs, Orthopnea, Palpitations, Paroxysmal nocturnal dyspnea, Rheumatic Fever, Syncope Endocrine: Reports: As per HPI. Denies: Fatigue, Heat or cold intolerance, Polydipsia, Polyuria Gastrointestinal: Reports: As per HPI, Abdominal pain (right flank pain). Denies: Constipation, Diarrhea, Hematemesis, Hematochezia, Melena, Nausea, Vomiting Genitourinary: Reports: As per HPI. Denies: Dysuria, Frequency, Hematuria, Incontinence, Retention, Testicular pain, Testicular mass, Urgency Musculoskeletal: Reports: As per HPI. Denies: Arthralgia, Back pain, Gout, Joint swelling, Myalgia, Neck pain Skin: Reports: As per HPI. Denies: Bruising, Change in color, Change in hair/ nails, Lesions, Pruritus, Rash Neurological: Reports: As per HPI. Denies: Abnormal gait, Confusion, Headache, Numbness, Paresthesias, Seizure, Tingling, Tremors, Vertigo, Weakness Psychiatric: Reports: As per HPI. Denies: Anxiety, Auditory hallucinations, Depression, Homicidal thoughts, Suicidal thoughts, Visual hallucinations Hematological/Lymphatic: Reports: As per HPI. Denies: Anemia, Blood Clots, Easy bleeding, Easy bruising, Swollen glands Past Medical History - SOCIAL HISTORY Smoking Status: Current every day smoker Alcohol Use: Rare, Occasional Drug Use: None - RESPIRATORY Hx Respiratory Disorders: Yes Hx Asthma: Yes (uses inhaler) Hx Sleep Apnea: Yes Hx of CPAP: No - CARDIOVASCULAR Hx Cardio Disorders: Yes Hx Irregular Heartbeat: Yes Hx Palpitations: Yes - NEURO Hx Neuro Disorders: Yes Hx Headaches: Yes - GI Hx GI Disorders: Yes Hx Abdominal Pain: Yes Hx Nausea/Vomiting: Yes Hx Ulcer: Yes (in past 2017) - Hx Genitourinary Disorders: Yes Hx Kidney Stones: Yes Hx Renal Disease: Yes (right kidney removed d/t cancer) - ENDOCRINE Hx Endocrine Disorders: Yes Hx Thyroid Disease: Yes - MUSCULOSKELETAL Hx Musculoskeletal Disorders: Yes Hx Arthritis: Yes Hx Back Injury: Yes - PSYCH Hx Psych Problems: Yes Hx Anxiety: Yes Hx Depression: Yes - HEMATOLOGY/ONCOLOGY Hx Hematology/Oncology Disorders: Yes 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 negative: External canal tenderness Nasal Exam: Normal inspection. negative: Discharge, Sinus tenderness Mouth exam: Normal external inspection, Tongue normal Teeth exam: Normal inspection. negative: Dental caries Throat exam: Normal inspection. negative: Tonsillar erythema, Tonsillar exudate - Neck Neck exam: Normal inspection, Full ROM. negative: Tenderness - Respiratory Respiratory exam: Normal lung sounds bilaterally. negative: Respiratory distress - Cardiovascular Cardiovascular Exam: Regular rate, Normal rhythm, Normal heart sounds - GI/Abdominal GI/Abdominal exam: Soft, Normal bowel sounds. negative: Tenderness - Rectal Rectal exam: Deferred - exam: Deferred - Extremities Extremities exam: Normal inspection, Full ROM, Normal capillary refill. negative: Tenderness - Back Back exam: Reports: Normal inspection, Full ROM, Muscle spasm, Tenderness (left flank pain and lumbar back pain). Denies: Rash noted - Neurological Neurological exam: Alert, Normal gait, Oriented X3, Reflexes normal - Psychiatric Psychiatric exam: Normal affect, Normal mood - Skin Skin exam: Dry, Intact, Normal color, Warm Course Vital Signs 06/08/18 13:40 Temperature 98.0 F Pulse Rate 93 H Respiratory 18 Rate Blood Pressure 117/76 Pulse Ox 98 Medical Decision Making - Data Complexity MDM Data: Labs Ordered and/or Reviewed, X-Ray Ordered and/or Reviewed (non obstructing kidney stone left side and neg collitis) - Lab Data Result diagrams: 06/08/18 14:00 06/08/18 14:00 Disposition Clinical Impression: Low back pain Qualifiers: Chronicity: acute Back pain laterality: left Sciatica presence: without sciatica Qualified Code(s): M54.5 - Low back pain Lumbar strain Qualifiers: Encounter type: initial encounter Qualified Code(s): S39.012A - Strain of muscle, fascia and tendon of lower back, initial encounter Disposition: Home, Self-Care Condition: (1) Good Instructions: Low Back Strain (ED) Additional Instructions: follow up with family in 7 to 10 days Prescriptions: Cyclobenzaprine HCl [Flexeril] 10 mg PO TID #20 tablet Forms: Patient Portal Access Time of Disposition: 15:43 Quality - Quality Measures Quality Measures: N/A - Blood Pressure Screening Does Patient Have Any of the Following: No Blood Pressure Classification: Normal BP Reading Systolic Measurement: 117 Diastolic Measurement: 76 Screening for High Blood Pressure: < Normal BP, F/U Not Required > [G1139]
[2018-06-08 14:02] LABS: URINE APPEARANCE CLEAR; URINE BILIRUBIN NEGATIVE (NEGATIVE); URINE BLOOD NEGATIVE (NEGATIVE); URINE COLOR YELLOW; URINE GLUCOSE (UA) NEGATIVE (NEGATIVE); URINE KETONE NEGATIVE (NEGATIVE); URINE LEUKOCYTE ESTERASE NEGATIVE (NEGATIVE); URINE NITRITE NEGATIVE (NEGATIVE); URINE UROBILINOGEN 0.2 E.U./dL (0.20 - 1.00)
[2018-06-08 14:06] LABS: URINE EPITHELIAL CELLS 0 - 2 (FEW); URINE RBC 0 - 2 (NONE SEEN); URINE WBC 0 - 2 (0-2/hpf)
[2018-06-08 14:07] LABS: URINE BACTERIA NONE SEEN
[2018-06-08 14:09] LABS: BASO % 0.5 % (0-6); EOS % 4.2 % (0-6); HEMATOCRIT 44.7 % (42.0-52.0); HEMOGLOBIN 14.1 gm/dl (14.0-18.0); MEAN CORPUSCULAR HGB CONC 31.5 g/dl (32-36); MEAN PLATELET VOLUME 9.5 fl (7.4-10.4); MONO % 9.3 % (0-9); PLATELET COUNT 239 K/uL (130-400); RED CELL DISTRIBUTION WIDTH 14.2 % (11.5-14.5); WHITE BLOOD COUNT W/O DIFF 8.1 K/uL (4.2-12.2)
[2018-06-08 14:12] LABS: MEAN CORPUSCULAR HEMOGLOBIN 32.7 pg (27-33)
[2018-06-08 14:17] LABS: BLOOD UREA NITROGEN 18 mg/dL (8-23); CREATININE 2.6 mg/dL (0.7-1.2); EST GLOMERULAR FILTRATION RATE 26 mL/min
[2018-06-08 14:18] LABS: TOTAL PROTEIN 7.1 g/dL (6.6-8.7)
[2018-06-08 14:20] LABS: GLUCOSE,RANDOM 115 mg/dL (74-109)
[2018-06-08 14:23] LABS: ALBUMIN 4.2 g/dL (4.0-5.0); ALKALINE PHOSPHATASE 133 U/L (40-129); ALT/SGPT 31 U/L (<41); AST/SGOT 22 U/L (10.0-50.0); BILIRUBIN,DIRECT < 0.2 mg/dL (0-0.3)
--- NOTE | 2018-06-08 15:50 | CT SCAN REPORT ---
EXAM: CT SCAN ABDOMEN/PELVIS WO CONTRAST HISTORY: BACK PAIN. LEFT FLANK PAIN. TECHNIQUE: Sequential axial images were obtained from the diaphragms through the ischiorectal fossa without intravenous contrast administration. FINDINGS: Gallbladder is surgically removed. The liver appears homogeneous. The pancreas and spleen appear normal. The adrenal glands appear normal. Right kidney is surgically removed. Large nonobstructing calculus in left kidney measuring 8 mm. The small bowel appears normal. The colon appears normal. The urinary bladder appears normal. There is multilevel degenerative change of the lumbar spine. IMPRESSION: 1. NO CT FINDINGS SUGGESTIVE OF OBSTRUCTIVE UROPATHY. 2. SURGICAL REMOVAL OF RIGHT KIDNEY. 3. MULTILEVEL DEGENERATIVE CHANGE OF THE LUMBAR SPINE. JOB NUMBER: [id number] [facility]
== END 2018-06-08 15:55 | disposition home or self-care (01) ==
LOC: ER 13:36
DX: S39.012A Strain of muscle, fascia and tendon of lower back, initial encounter (principal); N20.0 Calculus of kidney; Z85.528 Personal history of other malignant neoplasm of kidney; Z85.830 Personal history of malignant neoplasm of bone; Z87.442 Personal history of urinary calculi; F17.210 Nicotine dependence, cigarettes, uncomplicated; X58.XXXA Exposure to other specified factors, initial encounter
CPT/HCPCS: 74176; 80048; 80076; 81001; 85025; 99283; 99284